=== PATIENT | female | born 1975 | race Caucasian/White ===

== ENCOUNTER 2023-11-20 13:46 | Emergency (ER) | payer SELFPAY ==
[~2023-11-20] VITALS: Ht 165.1 cm; Wt 45.4 kg
[2023-11-20 14:19] VITALS: PULSE 70; RESP 15; TEMP 98; O2SAT 99
[2023-11-20] MEDS ORDERED: HYDROCODON-ACE1 EA11 PO (15:50)
[2023-11-20] MEDS ORDERED: NAPROXEN250 MG PO (15:50)
[2023-11-20] MEDS: KETOROLAC TROMETHAMINE 30 MG/ML VIAL IM STA (16:03)
== END 2023-11-20 16:27 | disposition home or self-care (01) ==
LOC: ER 13:53
DX: S92.314A Nondisplaced fracture of first metatarsal bone, right foot, initial encounter for closed fracture (principal); W20.8XXA Other cause of strike by thrown, projected or falling object, initial encounter; Y92.89 Other specified places as the place of occurrence of the external cause
CPT/HCPCS: 73630; 99284; J1885